=== PATIENT | female | born 1980 | race Caucasian/White ===

== ENCOUNTER 2017-02-04 16:13 | Emergency (ER) | payer SELFPAY ==
[~2017-02-04] VITALS: Ht 165.1 cm; Wt 59.0 kg
[2017-02-04 18:53] LABS: BASOPHILS % (AUTO) 0.6 % (0.0-2.0); EOSINOPHILS % (AUTO) 1.9 % (0.0-3.0); LYMPHOCYTES % (AUTO) 15.3 % (20.0-45.0); MEAN CORPUSCULAR HEMOGLOBIN 29.6 PG (27.0-31.0); MEAN CORPUSCULAR HGB CONC 32.5 G/DL (32.0-36.0); MEAN CORPUSCULAR VOLUME 91 FL (80-99); MEAN PLATELET VOLUME 5.8 FL (6.5-10.1); MONOCYTES % (AUTO) 7.1 % (1.0-10.0); NEUTROPHILS % (AUTO) 75.1 % (45.0-75.0); PLATELET COUNT 284 K/UL (150-450); RED BLOOD COUNT 3.96 M/UL (4.20-5.40); RED CELL DISTRIBUTION WIDTH 12.7 % (11.6-14.8); WHITE BLOOD COUNT 15.9 K/UL (4.8-10.8)
[2017-02-04 19:05] LABS: ACETAMINOPHEN < 10 ug/mL (10-30); ALANINE AMINOTRANSFERASE 15 U/L (3-33); ALBUMIN/GLOBULIN RATIO 1.5 (1.0-2.7); ALCOHOL < 10 mg/dL; ANION GAP 14 (5-15); ASPARTATE AMINO TRANSFERASE 22 U/L (5-40); CALCIUM 9.1 mg/dL (8.6-10.2); CARBON DIOXIDE 25 mEQ/L (20-30); CHLORIDE 103 mEQ/L (98-107); CREATININE 0.7 mg/dL (0.5-0.9); GLOMERULAR FILTRATION RATE > 60 mL/min (>60); HEMOLYSIS 5; POTASSIUM 3.7 mEQ/L (3.4-4.9); SODIUM 142 mEQ/L (135-145); TOTAL PROTEIN 6.3 g/dL (6.6-8.7)
[2017-02-04 21:23] LABS: APPEARANCE,URINE SLIGHTLY CLOUDY; KETONES,URINE 2+ (NEGATIVE); LEUKOCYTE ESTERASE ,URINE 2+ (NEGATIVE); NITRITE,URINE POSITIVE (NEGATIVE); PH,URINE 5 (4.5-8.0); PROTEIN,URINE 2+ (NEGATIVE); UROBILINOGEN,URINE 1 MG/DL (0.0-1.0)
[2017-02-04 21:28] LABS: BACTERIA,URINE MANY /HPF; RBC,URINE 15-20 /HPF (0 - 2); SQUAMOUS EPITHELIAL CELL,UR FEW /LPF (NONE/OCC)
[2017-02-04 21:29] LABS: AMORPHOUS SEDIMENT,UR FEW /LPF; ICTOTEST NEGATIVE
[2017-02-04] MEDS ORDERED: cefTRIAXone 1 GM in NS 55 ML IVPB ONE (21:30)
[2017-02-04 22:26] VITALS: BP 96/62
[2017-02-05 03:00] VITALS: BP 110/68
[2017-02-05 03:21] LABS: BASOPHILS % (AUTO) 0.9 % (0.0-2.0); EOSINOPHILS % (AUTO) 1.8 % (0.0-3.0); LYMPHOCYTES % (AUTO) 12.5 % (20.0-45.0); MEAN CORPUSCULAR HEMOGLOBIN 30.2 PG (27.0-31.0); MEAN CORPUSCULAR HGB CONC 33.3 G/DL (32.0-36.0); MEAN CORPUSCULAR VOLUME 91 FL (80-99); MEAN PLATELET VOLUME 5.9 FL (6.5-10.1); MONOCYTES % (AUTO) 6.1 % (1.0-10.0); NEUTROPHILS % (AUTO) 78.7 % (45.0-75.0); PLATELET COUNT 285 K/UL (150-450); RED BLOOD COUNT 3.78 M/UL (4.20-5.40); RED CELL DISTRIBUTION WIDTH 12.8 % (11.6-14.8); WHITE BLOOD COUNT 10.4 K/UL (4.8-10.8)
[2017-02-05 05:10] VITALS: BP 115/74
--- NOTE | 2017-02-05 08:51 | Emergency Room Report ---
Physical Exam Patient allegedly brought by [employer] for bizarre behavior. Please refer to the full note from Mr. Vasquez. Vital Signs Date Time Temp Pulse Resp B/P Pulse Ox O2 Delivery O2 Flow Rate FiO2 02/04/17 16:10 97.2 98 20 134/96 98 Room Air Sp02 EP Interpretation: reviewed, normal General Appearance: alert, other - delusoinal Eyes: bilateral eye PERRL, bilateral eye Scleral Injection ENT: moist mucus membranes Respiratory: no accessory muscle use, speaking full sentences Cardiovascular #1: no edema Gastrointestinal: scaphoid Musculoskeletal: digits/nails normal, gait/station normal, normal range of motion Neurologic: alert, motor strength/tone normal, normal gait, grossly normal Psychiatric: no suicidal/homicidal ideation, other - paranoid delusions, pressured Skin: normal color, no rash Medical Decision Making Diagnostic Impression: Primary Impression: Paranoid ideation Additional Impressions: Psychosis Qualified Codes: F29 - Unspecified psychosis not due to a substance or known physiological condition Amphetamine abuse ER Course Patient initially evaluated for bizarre behavior. Calmed now. Still with lability. Patient able to give name. Improving. States ESCOBAR. Tylenol ordered. Delusional with paranoid ideation. Need PET eval. Patient with PET eval and placed on 5150. Await placement. Laboratory Tests Test 02/04/17 18:39 02/04/17 20:45 02/04/17 21:00 02/05/17 01:50 White Blood Count 15.9 K/UL (4.8-10.8) H 10.4 K/UL (4.8-10.8) Red Blood Count 3.96 M/UL (4.20-5.40) L 3.78 M/UL (4.20-5.40) L Hemoglobin 11.7 G/DL (12.0-16.0) L 11.4 G/DL (12.0-16.0) L Hematocrit 36.1 % (37.0-47.0) L 34.3 % (37.0-47.0) L Mean Corpuscular Volume 91 FL (80-99) 91 FL (80-99) Mean Corpuscular Hemoglobin 29.6 PG (27.0-31.0) 30.2 PG (27.0-31.0) Mean Corpuscular Hemoglobin Concent 32.5 G/DL (32.0-36.0) 33.3 G/DL (32.0-36.0) Red Cell Distribution Width 12.7 % (11.6-14.8) 12.8 % (11.6-14.8) Platelet Count 284 K/UL (150-450) 285 K/UL (150-450) Mean Platelet Volume 5.8 FL (6.5-10.1) L 5.9 FL (6.5-10.1) L Neutrophils (%) (Auto) 75.1 % (45.0-75.0) H 78.7 % (45.0-75.0) H Lymphocytes (%) (Auto) 15.3 % (20.0-45.0) L 12.5 % (20.0-45.0) L Monocytes (%) (Auto) 7.1 % (1.0-10.0) 6.1 % (1.0-10.0) Eosinophils (%) (Auto) 1.9 % (0.0-3.0) 1.8 % (0.0-3.0) Basophils (%) (Auto) 0.6 % (0.0-2.0) 0.9 % (0.0-2.0) Sodium Level 142 mEQ/L (135-145) Potassium Level 3.7 mEQ/L (3.4-4.9) Chloride Level 103 mEQ/L (98-107) Carbon Dioxide Level 25 mEQ/L (20-30) Anion Gap 14 (5-15) Blood Urea Nitrogen 7 mg/dL (7-23) Creatinine 0.7 mg/dL (0.5-0.9) Estimate Glomerular Filtration Rate > 60 mL/min (>60) Glucose Level 93 mg/dL (74-106) Calcium Level 9.1 mg/dL (8.6-10.2) Total Bilirubin 0.5 mg/dL (0.0-1.2) Aspartate Amino Transferase (AST) 22 U/L (5-40) Alanine Aminotransferase (ALT) 15 U/L (3-33) Alkaline Phosphatase 77 U/L (35-104) Total Protein 6.3 g/dL (6.6-8.7) L Albumin 3.8 g/dL (3.5-5.2) Globulin 2.5 g/dL Albumin/Globulin Ratio 1.5 (1.0-2.7) Salicylates Level < 1 mg/dL (10-30) L Acetaminophen Level < 10 ug/mL (10-30) L Serum Alcohol < 10 mg/dL Urine Opiates Screen Negative (NEGATIVE) Urine Barbiturates Screen Negative (NEGATIVE) Phencyclidine (PCP) Screen Negative (NEGATIVE) Urine Amphetamines Screen Positive (NEGATIVE) H Urine Benzodiazepines Screen Negative (NEGATIVE) Urine Cocaine Screen Negative (NEGATIVE) Urine Marijuana (THC) Screen Positive (NEGATIVE) H Urine Color Brown Urine Appearance Slightly cloudy Urine pH 5 (4.5-8.0) Urine Specific [place] 1.025 (1.005-1.035) Urine Protein 2+ (NEGATIVE) H Urine Glucose (UA) Negative (NEGATIVE) Urine Ketones 2+ (NEGATIVE) H Urine Occult Blood 5+ (NEGATIVE) H Urine Nitrite Positive (NEGATIVE) H Urine Bilirubin 1+ (NEGATIVE) H Urine Ictotest Negative Urine Urobilinogen 1 MG/DL (0.0-1.0) H Urine Leukocyte Esterase 2+ (NEGATIVE) H Urine RBC 15-20 /HPF (0 - 2) H Urine WBC 10-15 /HPF (0 - 2) H Urine Squamous Epithelial Cells Few /LPF (NONE/OCC) Urine Amorphous Sediment Few /LPF (NONE) H Urine Bacteria Many /HPF (NONE) H Last Vital Signs Date Time Temp Pulse Resp B/P Pulse Ox O2 Delivery O2 Flow Rate FiO2 02/05/17 22:17 98.4 79 16 119/71 100 Room Air Status: improved Condition: Improved Referrals: NOT CHOSEN LAKISHA/,REFERRING (PCP) Reynold Paris M.D. Feb 05, 2017 08:51
[2017-02-05 12:00] VITALS: BP 113/67
[2017-02-05 18:00] VITALS: BP_SYST 112; BP_SYST 148; BP_DIAS 65; BP_DIAS 89
[2017-02-05 19:45] VITALS: BP 123/67
[2017-02-05 22:17] VITALS: BP 119/71
[2017-02-06 02:00] VITALS: BP 122/75
[2017-02-06 06:31] VITALS: BP 127/77
[2017-02-06 08:00] VITALS: BP 121/73
[2017-02-06 12:20] VITALS: BP 124/86
--- NOTE | 2017-02-11 17:25 | Emergency Room Report ---
History of Present Illness General Chief Complaint: Behavioral Complaint Source: Patient (ARIA OLIVER) Present Illness HPI The pt is a 36 yo F BIB police and placed on 5150 by them due to possible attempt at self harm. [place] The police officers state the pt has been acting bizarrely by crying frequently for no known reason, thrashing about, and acting paranoid. The pt does not provide any information at this time including her name. (ARIA OLIVER) Allergies: Uncoded Allergies: PENICILLIN (Allergy, Unknown, 02/06/17) Patient History Past Medical History: see triage record Pertinent Family History: none Reviewed Nursing Documentation: PMH: Agreed, PSxH: Agreed (ARIA OLIVER) Nursing Documentation-PMH Past Medical History Deferred: Pt Cognitively Impaired Past Medical History: No Stated History (ARIA OLIVER) Review of Systems All Other Systems: negative except mentioned in HPI (ARIA OLIVER) Physical Exam Vital Signs Date Time Temp Pulse Resp B/P Pulse Ox O2 Delivery O2 Flow Rate FiO2 02/04/17 16:10 97.2 98 20 134/96 98 Room Air Sp02 EP Interpretation: reviewed, normal General Appearance: no apparent distress, alert, GCS 15, other - disheveled Head: normocephalic, atraumatic Eyes: bilateral eye PERRL, bilateral eye normal inspection ENT: hearing grossly normal, normal pharynx, no angioedema, normal voice Respiratory: chest non-tender, lungs clear, normal breath sounds, speaking full sentences Cardiovascular #1: regular rate, rhythm, no edema Musculoskeletal: back normal, gait/station normal, normal range of motion, non- tender Neurologic: alert, motor strength/tone normal, sensory intact, speech normal Psychiatric: other - pt is delusional Suicide Risk Assessment: Suicidal Ideation: No - unable to fully assess as patient does not respond to questioning directly. Skin: normal color, no rash, warm/dry, well hydrated Lymphatic: no adenopathy (ARIA OLIVER) Medical Decision Making PA Attestation Dr. Paris is my supervising physician. Patient management was discussed with my supervising physician (ARIA OLIVER Diagnostic Impression: Primary Impression: Paranoid ideation Additional Impressions: Psychosis Amphetamine abuse ER Course The pt is a 36 yo F BIB police and placed on 5150 by them due to possible attempt at self harm DDx: psychosis, SI, drug abuse PE: vitals WNL. NAD Pt appears disheveled. Pt does not respond appropriately to questioning. 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 HEENT unremarkable. Lungs CTA bilat. Abd is soft and non tender. Skin is warm and dry. Normal gait CBC: leukocytosis CMP: unremarkable UA: consistent with UTI Urine preg: neg UDS: + THC and amphetamines The pt is 1gm IV rocephin and tylenol and is resting comfortably in gurney. After several hours, the pt provides her name and . The pt is medically cleared and will be transferred to [facility]. Labs Test 02/04/17 18:39 02/04/17 20:45 02/04/17 21:00 02/05/17 01:50 Sodium Level 142 mEQ/L (135-145) Potassium Level 3.7 mEQ/L (3.4-4.9) Chloride Level 103 mEQ/L (98-107) Carbon Dioxide Level 25 mEQ/L (20-30) Anion Gap 14 (5-15) Blood Urea Nitrogen 7 mg/dL (7-23) Creatinine 0.7 mg/dL (0.5-0.9) Estimat Glomerular Filtration Rate > 60 mL/min (>60) Glucose Level 93 mg/dL (74-106) Calcium Level 9.1 mg/dL (8.6-10.2) Total Bilirubin 0.5 mg/dL (0.0-1.2) Aspartate Amino Transf (AST/SGOT) 22 U/L (5-40) Alanine Aminotransferase (ALT/SGPT) 15 U/L (3-33) Alkaline Phosphatase 77 U/L (35-104) Total Protein 6.3 g/dL (6.6-8.7) Albumin 3.8 g/dL (3.5-5.2) Globulin 2.5 g/dL Albumin/Globulin Ratio 1.5 (1.0-2.7) Salicylates Level < 1 mg/dL (10-30) Acetaminophen Level < 10 ug/mL (10-30) Serum Alcohol < 10 mg/dL Urine Opiates Screen Negative (NEGATIVE) Urine Barbiturates Screen Negative (NEGATIVE) Phencyclidine (PCP) Screen Negative (NEGATIVE) Urine Amphetamines Screen Positive (NEGATIVE) Urine Benzodiazepines Screen Negative (NEGATIVE) Urine Cocaine Screen Negative (NEGATIVE) Urine Marijuana (THC) Screen Positive (NEGATIVE) Urine Color Brown Urine Appearance Slightly cloudy Urine pH 5 (4.5-8.0) Urine Specific [place] 1.025 (1.005-1.035) Urine Protein 2+ (NEGATIVE) Urine Glucose (UA) Negative (NEGATIVE) Urine Ketones 2+ (NEGATIVE) Urine Occult Blood 5+ (NEGATIVE) Urine Nitrite Positive (NEGATIVE) Urine Bilirubin 1+ (NEGATIVE) Urine Ictotest Negative Urine Urobilinogen 1 MG/DL (0.0-1.0) Urine Leukocyte Esterase 2+ (NEGATIVE) Urine RBC 15-20 /HPF (0 - 2) Urine WBC 10-15 /HPF (0 - 2) Urine Squamous Epithelial Cells Few /LPF (NONE/OCC) Urine Amorphous Sediment Few /LPF (NONE) Urine Bacteria Many /HPF (NONE) White Blood Count 10.4 K/UL (4.8-10.8) Red Blood Count 3.78 M/UL (4.20-5.40) Hemoglobin 11.4 G/DL (12.0-16.0) Hematocrit 34.3 % (37.0-47.0) Mean Corpuscular Volume 91 FL (80-99) Mean Corpuscular Hemoglobin 30.2 PG (27.0-31.0) Mean Corpuscular Hemoglobin Concent 33.3 G/DL (32.0-36.0) Red Cell Distribution Width 12.8 % (11.6-14.8) Platelet Count 285 K/UL (150-450) Mean Platelet Volume 5.9 FL (6.5-10.1) Neutrophils (%) (Auto) 78.7 % (45.0-75.0) Lymphocytes (%) (Auto) 12.5 % (20.0-45.0) Monocytes (%) (Auto) 6.1 % (1.0-10.0) Eosinophils (%) (Auto) 1.8 % (0.0-3.0) Basophils (%) (Auto) 0.9 % (0.0-2.0) Test 3/13/17 10:23 Urine HCG, Qualitative Negative Lab Results Impression CBC: leukocytosis CMP: unremarkable UA: consistent with UTI Urine preg: neg UDS: + THC and amphetamines (ARIA OLIVER) ER Course I agree with the above assessment and plan. Patient improved with observation but still delusional. (Reynold Paris M.D.) Last Vital Signs Date Time Temp Pulse Resp B/P Pulse Ox O2 Delivery O2 Flow Rate FiO2 02/06/17 12:20 66 16 124/86 99 Room Air 02/06/17 12:14 98.3 Status: improved (ARIA OLIVER) Disposition: XFER TO PSYCH HOSP/UNIT Condition: Stable Referrals: NOT CHOSEN IPA/,REFERRING (PCP) ARIA OLIVER Feb 11, 2017 17:25 Reynold Paris M.D. Feb 15, 2017 03:25
== END 2017-02-06 12:35 ==
LOC: EDBD 16:13 → EMR 16:51
DX: F60.0 Paranoid personality disorder (principal); F29 Unspecified psychosis not due to a substance or known physiological condition; F15.10 Other stimulant abuse, uncomplicated
CPT/HCPCS: 36415; 80053; 80300; 81003; 81025; 85025; 87086; 87181; 96360; 96361; 96374; 99285; G0480; J0696; 80329